=== PATIENT | male | born 1975 | race Caucasian/White ===

== ENCOUNTER 2023-03-30 14:17 | Inpatient (IN) | payer OTHER, SELFPAY ==
[2023-03-30] MEDS ORDERED: Aspirin Chewable 81 MG TAB ONE (14:32)
[2023-03-30 14:57] LABS: #Basophils 0.1 thou/uL (0.0-0.2); #Eosinphils 0.3 thou/uL (0.0-0.7); #Monocytes 0.8 thou/uL (0.11-0.59); #Neutrophils 7.5 thou/uL (1.40-6.50); %Basophils 0.6 % (0.0-1.0); %Lymphocytes 19.6 % (21.0-51.0); %Monocytes 7.1 % (0.0-10.0); %Neutrophils 69.3 % (42.0-75.0); Hematocrit 47.4 % (42.0-52.0); Hemoglobin 15.8 g/dL (14.0-18.0); Mean Corpuscular HGB CONC 33.3 g/dL (32.0-36.0); Mean Corpuscular Hemoglobin 28.7 pg (27.0-31.0); Mean Corpuscular Volume 86.2 fl (78.0-98.0); Mean Platelet Volume 8.8 fL (7.4-10.4); Platelet Count 282 10x3/uL (130-400); RBC Distribution Width 12.6 % (11.5-14.5); White Blood Cell (WBC) Count 10.8 10x3/uL (4.8-10.8)
[2023-03-30 15:07] LABS: Prothrombin Time 13.4 sec (12.0-14.7)
[2023-03-30 15:08] LABS: PTT 26.4 sec (22.9-36.1)
[2023-03-30 15:19] LABS: Anion Gap 13 mmol/L (10-20); BUN (Urea Nitrogen) 17 mg/dL (8.9-20.6); Calc. Creatinine Clearance 0 mL/min (70-130); Calcium 9.4 mg/dL (7.8-10.44); Carbon Dioxide 23 mmol/L (22-29); Chloride 104 mmol/L (98-107); Estimated GFR 101; Glucose 93 mg/dL (70-105); Potassium 3.9 mmol/L (3.5-5.1); Sodium 136 mmol/L (136-145)
[2023-03-30] MEDS ORDERED: Bisacodyl 10 MG SUPP PR PRN (15:50)
[2023-03-30] MEDS ORDERED: Senokot S 8.6-50 MG TAB PO PRN (15:50)
[2023-03-30] MEDS ORDERED: Bisacodyl 5 MG TAB PO PRN (15:50)
[2023-03-30] MEDS ORDERED: Ondansetron PF 4 MG/2 ML Vial IVP PRN (15:50)
[2023-03-30] MEDS ORDERED: Acetaminophen 325 MG TAB PO PRN (15:50)
[2023-03-30 17:25] VITALS: BMI 27.2
[2023-03-30] MEDS: busPIRone HCl 10 MG TAB PO SCH (20:14)
[2023-03-30] MEDS: Atorvastatin Calcium 40 MG TAB PO SCH (20:14)
[2023-03-30] MEDS ORDERED: Lisinopril 20 MG TAB PO SCH (21:00)
[2023-03-30 21:20] LABS: Amphetamine Not Detected (NotDetected); Barbiturates Screen Not Detected (NotDetected); Benzodiazepine Screen Not Detected (NotDetected); Cocaine Metabolite Screen Not Detected (NotDetected); Methadone Not Detected (NotDetected); Methamphetamine Not Detected (NotDetected); Opiate Screen Not Detected (NotDetected); Oxycodone Screen Not Detected (NotDetected); Phencyclidine (PCP) Not Detected (NotDetected); THC/Cannabinoid Screen Not Detected (NotDetected); Tricyclic Screen Not Detected (NotDetected)
[2023-03-31 06:21] LABS: #Basophils 0.1 thou/uL (0.0-0.2); #Eosinphils 0.4 thou/uL (0.0-0.7); #Monocytes 0.8 thou/uL (0.11-0.59); #Neutrophils 3.6 thou/uL (1.40-6.50); %Eosinophils 4.9 % (0.0-10.0); %Lymphocytes 32.4 % (21.0-51.0); %Monocytes 10.6 % (0.0-10.0); %Neutrophils 50.4 % (42.0-75.0); Hematocrit 47.7 % (42.0-52.0); Hemoglobin 15.8 g/dL (14.0-18.0); Mean Corpuscular HGB CONC 33.1 g/dL (32.0-36.0); Mean Corpuscular Hemoglobin 28.3 pg (27.0-31.0); Mean Corpuscular Volume 85.5 fl (78.0-98.0); Mean Platelet Volume 8.7 fL (7.4-10.4); Platelet Count 257 10x3/uL (130-400); RBC Distribution Width 12.8 % (11.5-14.5); Red Blood Cell (RBC) Count 5.58 mill/uL (4.70-6.10); White Blood Cell (WBC) Count 7.1 10x3/uL (4.8-10.8)
[2023-03-31 06:32] LABS: Hemoglobin A1c 5.6 % (4.0-6.0)
[2023-03-31 06:46] LABS: Anion Gap 12 mmol/L (10-20); BUN (Urea Nitrogen) 16 mg/dL (8.9-20.6); Calc. Creatinine Clearance 102 mL/min (70-130); Calcium 8.7 mg/dL (7.8-10.44); Carbon Dioxide 24 mmol/L (22-29); Cardiac Risk 7.1 (Less than 4.5); Chloride 105 mmol/L (98-107); Cholesterol 271 mg/dl (< 200 Desired); Estimated GFR 97; Glucose 96 mg/dL (70-105); HDL Cholesterol 38 mg/dL (>60 Neg Risk); LDL Cholesterol, Calculated 181 mg/dL; Magnesium 2.1 mg/dL (1.6-2.6); Potassium 3.8 mmol/L (3.5-5.1); Sodium 137 mmol/L (136-145); Triglycerides 262 mg/dL (Less than 150)
[2023-03-31] MEDS: busPIRone HCl 10 MG TAB PO SCH ×2 (08:11→20:50)
[2023-03-31] MEDS: Hydrochlorothiazide 25 MG TAB PO SCH (08:11)
[2023-03-31] MEDS: Lisinopril 20 MG TAB PO SCH ×2 (08:12→20:50)
[2023-03-31] MEDS: Cyanocobalamin (Vitamin B-12) 1,000 MCG TAB PO SCH (08:12)
[2023-03-31] MEDS: DULoxetine 60 MG CAP PO SCH (08:12)
[2023-03-31] MEDS ORDERED: Aspirin 81 mg Enteric Coated Tablet PO SCH ×2 (09:00→10:00)
[2023-03-31] MEDS: Atorvastatin Calcium 40 MG TAB PO SCH (20:49)
[2023-04-01 06:11] LABS: #Basophils 0.1 thou/uL (0.0-0.2); #Eosinphils 0.3 thou/uL (0.0-0.7); #Neutrophils 3.9 thou/uL (1.40-6.50); %Basophils 0.6 % (0.0-1.0); %Eosinophils 3.9 % (0.0-10.0); %Lymphocytes 35.5 % (21.0-51.0); %Monocytes 11.9 % (0.0-10.0); %Neutrophils 47.6 % (42.0-75.0); Hematocrit 47.5 % (42.0-52.0); Hemoglobin 15.7 g/dL (14.0-18.0); Mean Corpuscular HGB CONC 33.1 g/dL (32.0-36.0); Mean Corpuscular Hemoglobin 28.9 pg (27.0-31.0); Mean Corpuscular Volume 87.3 fl (78.0-98.0); Platelet Count 277 10x3/uL (130-400); RBC Distribution Width 12.9 % (11.5-14.5); Red Blood Cell (RBC) Count 5.44 mill/uL (4.70-6.10); White Blood Cell (WBC) Count 8.1 10x3/uL (4.8-10.8)
[2023-04-01 06:40] LABS: Anion Gap 12 mmol/L (10-20); BUN (Urea Nitrogen) 18 mg/dL (8.9-20.6); Calc. Creatinine Clearance 92 mL/min (70-130); Carbon Dioxide 26 mmol/L (22-29); Chloride 106 mmol/L (98-107); Potassium 3.9 mmol/L (3.5-5.1); Sodium 140 mmol/L (136-145)
[2023-04-01 06:41] LABS: Calcium 8.8 mg/dL (7.8-10.44); Estimated GFR 85; Glucose 95 mg/dL (70-105); Magnesium 2.2 mg/dL (1.6-2.6)
[2023-04-01] MEDS: Lisinopril 20 MG TAB PO SCH (08:55)
[2023-04-01] MEDS: Cyanocobalamin (Vitamin B-12) 1,000 MCG TAB PO SCH (08:56)
[2023-04-01] MEDS: Hydrochlorothiazide 25 MG TAB PO SCH (08:56)
[2023-04-01] MEDS: busPIRone HCl 10 MG TAB PO SCH (08:56)
[2023-04-01] MEDS: DULoxetine 60 MG CAP PO SCH (08:56)
[2023-04-01] MEDS ORDERED: Aspirin 81 mg Enteric Coated Tablet PO SCH (09:00)
[2023-04-01 12:17] VITALS: BP 148/75; TEMP 98.1
== END 2023-04-01 13:39 | disposition home or self-care (01) | DRG 69 ==
LOC: ERS 14:17 → ERHOLD 15:48 → 2SW 17:21 → OBSVTOIN 03-31 12:23
PROVIDERS: ADMIT Family Medicine; ATTEND Family Medicine
DX: G45.9 Transient cerebral ischemic attack, unspecified (principal); G93.5 Compression of brain; G96.08 Other cranial cerebrospinal fluid leak; R47.01 Aphasia; I10 Essential (primary) hypertension; E78.00 Pure hypercholesterolemia, unspecified; F41.9 Anxiety disorder, unspecified; R47.81 Slurred speech; G93.0 Cerebral cysts; Z91.148 Patient's other noncompliance with medication regimen for other reason; Z79.899 Other long term (current) drug therapy; Z86.73 Personal history of transient ischemic attack (TIA), and cerebral infarction without residual deficits
CPT/HCPCS: 36415; 70551; 80048; 80061; 80306; 83036; 83735; 83880; 84443; 85025; 85379; 86850; 86900; 86901; 93306; G0378